=== PATIENT | male | born 1980 | race Caucasian/White ===

== ENCOUNTER 2025-04-10 15:20 | Emergency (ER) | payer SELFPAY | END 2025-04-10 16:33 | disposition home or self-care (01) | LOC: CSHERS 15:20 | DX: E11.42 Type 2 diabetes mellitus with diabetic polyneuropathy (principal); I10 Essential (primary) hypertension; E66.9 Obesity, unspecified; F17.210 Nicotine dependence, cigarettes, uncomplicated; Z79.84 Long term (current) use of oral hypoglycemic drugs | CPT/HCPCS: 99283 ==